=== PATIENT | male | born 1965 | race Caucasian/White ===

== ENCOUNTER 2018-12-10 11:54 | Emergency (ER) | payer BC ==
[2018-12-10 13:01] VITALS: BP 125/82
--- NOTE | 2018-12-10 13:40 | ED ---
Abdominal Pain/Male - HPI Summary HPI Summary: 53 yr old male with left upper quadrant pain for 1.5 months. He saw a GI doctor who set up outpatient imaging for him to be done this week. he has developed fever, increased pain and now a rash in the left upper abdomen over the past few days. The rash is in the same area he has had pain for the past couple of months. No NVD. No other complaints. He feels his abdomen is more distended. The patient has had HIV for 25 years - History of Current Complaint Chief Complaint: UCRash Stated Complaint: FEVER,RASH ON ABD,ST Time Seen by Provider: 12/10/18 13:27 Pain Intensity: 9 - Allergies/Home Medications Allergies/Adverse Reactions: Allergies Allergy/AdvReac Type Severity Reaction Status Date / Time spring allergies Allergy Eyes Uncoded 12/10/18 12:51 Itchy/Swollen/Red/Watery Home Medications: Home Medications 3rd Antiviral Med 4 tab PO DAILY 12/10/18 [History Confirmed 12/10/18] Atorvastatin* [Lipitor*] 40 mg PO DAILY 12/10/18 [History Confirmed 12/10/18] Raltegravir* [Isentress*] 400 mg PO DAILY 12/10/18 [History Confirmed 12/10/18] Ritonavir TAB (NF) [Norvir TAB (NF)] 100 mg PO QAM 12/10/18 [History Confirmed 12/10/18] diphenhydrAMINE HCl [Benadryl Allergy] 50 mg PO DAILY PRN 12/10/18 [History Confirmed 12/10/18] PMH/Surg Hx/FS Hx/Imm Hx Infectious Disease History: Yes Infectious Disease History: Denies: Traveled Outside the [place] in Last 30 Days - Family History Known Family History: Positive: None - Social History Alcohol Use: Occasionally Substance Use Type: Reports: None Smoking Status (MU): Former Smoker Review of Systems Positive: Fever, Chills Positive: Abdominal Pain Positive: Rash All Other Systems Reviewed And Are Negative: Yes Physical Exam Triage Information Reviewed: Yes Vital Signs On Initial Exam: Initial Vitals Temp Pulse Resp BP Pulse Ox 100.2 F 99 30 125/82 99 12/10/18 12:58 12/10/18 12:58 12/10/18 12:58 12/10/18 12:58 12/10/18 12:58 Vital Signs Reviewed: Yes Appearance: Positive: Well-Appearing, No Pain Distress Skin: Positive: Other - red rash left upper quadrant of abdomen. about the size of a soft ball. He has left upper abdominal tenderness and he has distention. Head/Face: Positive: Normal Head/Face Inspection Eyes: Positive: EOMI ENT: Positive: Pharynx normal Neck: Positive: Nontender Respiratory/Lung Sounds: Positive: Clear to Auscultation, Breath Sounds Present Cardiovascular: Positive: RRR. Negative: Murmur Abdomen Description: Positive: Distended, Other: - tender left upper quadrant of abdomen Musculoskeletal: Positive: Strength/ROM Intact Neurological: Positive: Sensory/Motor Intact, Alert, Oriented to Person Place, Time, CN Intact II-III Psychiatric: Positive: Normal Diagnostics - Vital Signs Vital Signs Temp Pulse Resp BP Pulse Ox 12/10/18 12:58 100.2 F 99 30 125/82 99 - Laboratory Lab Statement: Any lab studies that have been ordered have been reviewed, and results considered in the medical decision making process. Abdominal Pain Male Course/Dx - Course Course Of Treatment: 53 yr old with HIV infection 25 yrs. Abdominal pain for almost two months and now rash in the area of his abdominal pain. He drove here ,and he would like to drive himself to the ER in [place] for further work up. - Diagnoses Provider Diagnoses: Abdominal pain, left upper quadrant, Rash Discharge - Sign-Out/Discharge Documenting (check all that apply): Patient Departure All imaging exams completed and their final reports reviewed: No Studies - Discharge Plan Condition: Good Disposition: HOME-RECOMMEND TO ED Patient Education Materials: Acute Abdominal Pain (ED), Fever in Adults (ED), Acute Rash (ED) Referrals: Traci Stauffer PA [Primary Care Provider] - Additional Instructions: be sure that you go to the ER immediately after leaving here for further evaluation of your abdominal pain, fever and rash. - Billing Disposition and Condition Condition: GOOD Disposition: Home-Recommend to ED
== END 2018-12-10 13:40 | disposition home health service (06) ==
LOC: UCCORT 11:54
DX: R10.12 Left upper quadrant pain (principal); R21 Rash and other nonspecific skin eruption; Z21 Asymptomatic human immunodeficiency virus [HIV] infection status; Z87.891 Personal history of nicotine dependence
CPT/HCPCS: 99211; G0463